=== PATIENT | female | born 1975 | race Two or more races ===

== ENCOUNTER 2016-10-06 18:50 | Emergency (ER) | payer OTHER ==
[2016-10-06 18:55] VITALS: BP 105/74; PULSE 87; TEMP 98.4; BMI 33.9
[2016-10-06] MEDS ORDERED: ONDANSETRON *ODT* 4 MG TABLET SL ONE (20:31)
--- NOTE | 2016-10-06 20:31 | PDOC ---
History of Present Illness <Dana Rodriguez - Last Filed: 10/07/16 00:24> - General History Source: Patient Exam Limitations: No Limitations - History of Present Illness Initial Comments: 10/06/16 21:15 The patient is a 41-year-old female, with a significant past medical history of ulcers and multiple C-sections, who presents to the ED with abdominal discomfort , cramping, and nausea. Patient is experiencing epigastric discomfort and suprapubic pain. The patient was fasting 3 days ago for Ramada and feels dehydrated. Patient sees track manager Dr. Hurley. She reports having a history of ulcers for which she been on medication for and has had endoscopies for. The patient denies any fever, chills, vomiting, or diarrhea. <Marylin Grace - Last Filed: 10/07/16 01:59> - General Chief Complaint: Pain Stated Complaint: ABD PAIN Time Seen by Provider: 10/06/16 18:53 Past History - Past Medical History Asthma: No Cancer: No Cardiac Disorders: No Diabetes: No GI Disorders: Yes (ULCERS) HTN: No Seizures: No Thyroid Disease: No - Psycho/Social/Smoking Cessation Hx Suicidal Ideation: No Smoking Status: No Smoking History: Never smoked Have you smoked in the past 12 months: No Number of Cigarettes Smoked Daily: 0 Information on smoking cessation initiated: No Hx Alcohol Use: No Drug/Substance Use Hx: No Hx Substance Use Treatment: No <Dana Rodriguez - Last Filed: 10/07/16 00:24> <Marylin Grace - Last Filed: 10/07/16 01:59> - Past Medical History Allergies/Adverse Reactions: Allergies Allergy/AdvReac Type Severity Reaction Status Date / Time No Known Drug Allergies Allergy Verified 10/06/16 18:55 Home Medications: Ambulatory Orders Iron 1 tab PO DAILY 02/22/13 Vitamins (Sjr) - 1 tab PO 02/22/13 Prevacid 30 mg PO DAILY 02/22/13 Tylenol .Extra-Strength - 1,000 mg PO Q8H 02/22/13 Acetaminophen [Tylenol .Regular Strength -] 650 mg PO Q4H PRN #0 tablet Ibuprofen [Motrin -] 600 mg PO Q4H PRN #0 tablet 03/09/13 Pantoprazole Sodium [Protonix -] 40 mg PO DAILY #14 tablet.ec 10/07/16 Review of Systems - Review of Systems Able to Perform ROS?: Yes Comments:: 10/06/16 21:15 CONSTITUTIONAL: Absent: fever, chills, diaphoresis, generalized weakness, malaise, loss of appetite HEENT: Absent: rhinorrhea, nasal congestion, throat pain, throat swelling, difficulty swallowing, mouth swelling, ear pain, eye pain, visual Changes CARDIOVASCULAR: Absent: chest pain, syncope, palpitations, irregular heart rate, lightheadedness , peripheral edema RESPIRATORY: Absent: cough, shortness of breath, dyspnea with exertion, orthopnea, wheezing, stridor, hemoptysis GASTROINTESTINAL: Present: abdominal pain/cramping, nausea Absent: abdominal distension, vomiting, diarrhea, constipation, melena, hematochezia GENITOURINARY: Absent: dysuria, frequency, urgency, hesitancy, hematuria, flank pain, genital pain MUSCULOSKELETAL: Absent: myalgia, arthralgia, joint swelling SKIN: Absent: rash, itching, pallor HEMATOLOGIC/IMMUNOLOGIC: Absent: easy bleeding, easy bruising, lymphadenopathy, frequent infections ENDOCRINE: Absent: unexplained weight gain, unexplained weight loss, heat intolerance, cold intolerance NEUROLOGIC: Absent: headache, focal weakness or paresthesias, dizziness, unsteady gait, seizure, mental status changes, bladder or bowel incontinence PSYCHIATRIC: Absent: anxiety, depression, suicidal or homicidal ideation, hallucinations. <Marylin Grace - Last Filed: 10/07/16 01:59> *Physical Exam - Vital Signs Last Vital Signs Temp Pulse Resp BP Pulse Ox 98.4 F 87 18 105/74 99 10/06/16 18:51 10/06/16 18:51 10/06/16 18:51 10/06/16 18:51 10/06/16 18:51 <Dana Rodriguez - Last Filed: 10/07/16 00:24> - Vital Signs Last Vital Signs Temp Pulse Resp BP Pulse Ox 98.4 F 87 18 105/74 99 10/06/16 18:51 10/06/16 18:51 10/06/16 18:51 10/06/16 18:51 10/06/16 18:51 - Physical Exam Comments: 10/07/16 01:58 Well developed, well nourished. Awake and alert. No acute distress. HEENT: Normocephalic, atraumatic. PERRLA, EOMI. No conjunctival pallor. Sclera are non- icteric. Moist mucous membranes. Oropharynx is clear. NECK: Supple. Full ROM. No JVD. Carotid pulses 2+ and symmetric, without bruits. No thyromegaly. No lymphadenopathy. CARDIOVASCULAR: Regular rate and rhythm. No murmurs, rubs, or gallops. Distal pulses are 2+ and symmetric. PULMONARY: No evidence of respiratory distress. Lungs clear to auscultation bilaterally. No wheezing, rales or rhonchi. ABDOMINAL: Soft. Non-tender. Non-distended. No rebound or guarding. No organomegaly. Normoactive bowel sounds. MUSCULOSKELETAL Normal range of motion at all joints. No bony deformities or tenderness. No CVA tenderness. EXTREMITIES: No cyanosis. No clubbing. No edema. No calf tenderness. SKIN: Warm and dry. Normal capillary refill. No rashes. No jaundice. NEUROLOGICAL: Alert, awake, appropriate. Cranial nerves 2-12 intact. PSYCHIATRIC: Cooperative. Good eye contact. Appropriate mood and affect. <Marylin Grace - Last Filed: 10/07/16 01:59> ED Treatment Course - LABORATORY CBC & Chemistry Diagram: 10/06/16 21:55 10/06/16 21:55 <Dana Rodriguez - Last Filed: 10/07/16 00:24> - LABORATORY CBC & Chemistry Diagram: 10/06/16 21:55 10/06/16 21:55 - ADDITIONAL ORDERS Additional order review: Laboratory Results 10/06/16 10/06/16 20:30 20:30 Urine Color Colorless Urine Appearance Clear Urine pH 5.0 Urine Protein Negative Urine Glucose (UA) Negative Urine Ketones Negative Urine Blood 1+ H Urine Nitrite Negative Urine Bilirubin Negative Urine Urobilinogen Negative Ur Leukocyte Esterase Negative Urine HCG, Qual Negative <Marylin Grace - Last Filed: 10/07/16 01:59> *DC/Admit/Observation/Transfer <Dana Rodriguez - Last Filed: 10/07/16 00:24> - Attestations Scribe Attestion: 10/07/16 01:59 Documentation prepared by Marylin Grace, acting as medical staff services coordinator for Dana Rodriguez MD. <Marylin Grace - Last Filed: 10/07/16 01:59> Diagnosis at time of Disposition: Epigastric abdominal pain - Discharge Dispostion Disposition: HOME Condition at time of disposition: Stable - Prescriptions Prescriptions: Pantoprazole Sodium [Protonix -] 40 mg PO DAILY #14 tablet.ec - Referrals Referrals: Fabiola Mcbride MD [Primary Care Provider] - - Patient Instructions Printed Discharge Instructions: DI for Epigastric Pain Additional Instructions: please followup with your physician centrifugal supervisor your prescription at [facility] pharmacy Recommend seeing a track manager if your symptoms persist
[2016-10-06 20:50] LABS: URINE APPEARANCE CLEAR; URINE BILIRUBIN NEGATIVE (NEGATIVE); URINE COLOR COLORLESS; URINE GLUCOSE (UA) NEGATIVE (NEGATIVE); URINE KETONE NEGATIVE (NEGATIVE); URINE LEUK ESTERASE NEGATIVE (NEGATIVE); URINE NITRITE NEGATIVE (NEGATIVE); URINE PROTEIN NEGATIVE (NEGATIVE); URINE UROBILINOGEN NEGATIVE E.U./dl (0.2-1.0)
[2016-10-06 21:00] LABS: URINE BLOOD 1+ (NEGATIVE)
[2016-10-06 21:09] LABS: URINE BACTERIA RARE /hpf (NONE SEEN); URINE RBC <1 /hpf (0-3); URINE WBC <1 /hpf (3-5)
[2016-10-06] MEDS ORDERED: ONDANSETRON 8 MG TABLET (FP) PO ONE (21:46)
[2016-10-06 22:15] LABS: BASOPHIL 0.8 % (0-2.0); EOSINOPHIL 1.2 % (0-4.5); MCH 29.8 pg (25.7-33.7); MCHC 33.2 g/dl (32.0-36.0); MEAN CELL VOLUME 89.6 fl (80-96); MEAN PLT VOLUME 7.8 fl (7.5-11.1); NEUTROPHILS 56.4 % (42.8-82.8); PLATELET COUNT 302 K/MM3 (134-434); RDW 14.7 % (11.6-15.6); WHITE BLOOD COUNT 6.2 K/mm3 (4.0-10.0)
[2016-10-06 22:40] LABS: ANION GAP 11 (8-16); CALCIUM 9.6 mg/dL (8.5-10.1); CO2 23 mmol/L (21-32); CREATININE 0.7 mg/dL (0.55-1.02); GLUCOSE,RANDOM 110 mg/dL (74-106); SGOT/AST 17 U/L (15-37); SGPT/ALT 32 U/L (12-78)
[2016-10-06 22:42] LABS: ALK PHOS 54 U/L (45-117); BILIRUBIN,TOTAL 0.3 mg/dL (0.2-1.0); TOT PROT 7.6 g/dl (6.4-8.2)
[2016-10-07] MEDS ORDERED: PANTOPRAZOLE 40 MG TABLET (FP) PO ONE (00:21)
== END 2016-10-07 00:56 | disposition home or self-care (01) ==
LOC: JER 18:50
DX: R10.13 Epigastric pain (principal); Z87.19 Personal history of other diseases of the digestive system
CPT/HCPCS: 36415; 76705-TC; 80053; 81003; 81015; 83690; 84703; 85025; 99282-25

== ENCOUNTER 2016-10-13 21:01 | Observation (INO) | payer OTHER ==
--- NOTE | 2016-10-13 22:59 | PDOC ---
History of Present Illness - General History Source: Patient Exam Limitations: No Limitations - History of Present Illness Initial Comments: 10/14/16 00:02 The patient is a 41 year old female with history of IBS, gastric ulcers, with IUD in place, who returns to the ED for 10 days of intermittent epigastric pain. She was seen in the ED and discharged home after an unremarkable workup. She states she has continued to experience intermittent epigastric pain with radiation to the right lower quadrant and superpubic area. Her pain is worse with movement and not improved after Nexium. She reports associated nausea. She also states her chronic midline backpain is worse than her usual state. No fever or chills. No vomiting, diarrhea, or constipation. No hematuria, dysuria, or frequency. No vaginal bleeding or discharge. No chest pain or shortness of breath. PCP: Dr. Leija <Dannielle Duckworth - Last Filed: 10/14/16 00:35> <Lauryn Low - Last Filed: 10/14/16 03:56> <Arik Tamayo - Last Filed: 10/16/16 07:38> - General Chief Complaint: Pain Stated Complaint: ABD PAIN Time Seen by Provider: 10/13/16 22:59 Past History <Dannielle Duckworth - Last Filed: 10/14/16 00:35> <Lauryn Low - Last Filed: 10/14/16 03:56> - Past Medical History Asthma: No Cancer: No Cardiac Disorders: No Diabetes: No GI Disorders: Yes (ULCERS) HTN: No Seizures: No Thyroid Disease: No - Psycho/Social/Smoking Cessation Hx Suicidal Ideation: No Smoking Status: No Smoking History: Never smoked Have you smoked in the past 12 months: No Number of Cigarettes Smoked Daily: 0 Hx Alcohol Use: No Drug/Substance Use Hx: No Hx Substance Use Treatment: No <Arik Tamayo - Last Filed: 10/16/16 07:38> - Past Medical History Allergies/Adverse Reactions: Allergies Allergy/AdvReac Type Severity Reaction Status Date / Time No Known Drug Allergies Allergy Verified 10/13/16 21:17 Home Medications: Ambulatory Orders Acetaminophen [Tylenol .Regular Strength -] 650 mg PO Q4H PRN #0 tablet Pantoprazole Sodium [Protonix -] 40 mg PO DAILY 10/14/16 Review of Systems - Review of Systems Able to Perform ROS?: Yes Comments:: 10/14/16 00:36 CONSTITUTIONAL: No reported: Fever, Chills, Diaphoresis, Generalized Weakness, Malaise, Loss of Appetite HEENT: No reported: Rhinorrhea, Nasal Congestion, Throat Pain, Throat Swelling, Difficulty Swallowing, Mouth Swelling, Ear Pain, Eye Pain, Visual Changes CARDIOVASCULAR: No reported: Chest Pain, Syncope, Palpitations, Irregular Heart Rate, Lightheadedness, Peripheral Edema RESPIRATORY: No reported: Cough, Shortness of Breath, SOB with Exertion, Orthopnea, Wheezing , Stridor, Hemoptysis GASTROINTESTINAL: No reported: Abdominal pain, Abdominal Distension, Nausea, Vomiting, Diarrhea, Constipation, Melena, Hematochezia GENITOURINARY: No reported: Dysuria, Frequency, Urgency, Hesitancy, Flank Pain, Genital Pain MUSCULOSKELETAL: No reported: Myalgia, Arthralgia, Joint Swelling, Back pain, Neck Pain SKIN: No reported: Rash, Itching, Pallor HEMEATOLOGIC/IMMUNOLOGIC: No reported: Easy Bleeding, Easy Bruising, Lymphadenopathy, Frequent infections ENDOCRINE: No reported: Unexplained Weight Gain, Unexplained Weight Loss, Heat Intolerance , Cold Intolerance NEUROLOGIC: No reported: Headache, Focal Weakness, Paresthesias, Vertigo, Lightheadedness, Unsteady Gait, Seizure, Mental Status Changes, Incontinence PSYCHIATRIC: No reported: Anxiety, Depression <Dannielle Duckworth - Last Filed: 10/14/16 00:35> *Physical Exam - Vital Signs Last Vital Signs Temp Pulse Resp BP Pulse Ox 99.1 F 93 H 18 128/86 99 10/13/16 21:14 10/13/16 21:14 10/13/16 21:14 10/13/16 21:14 10/13/16 21:14 - Physical Exam Comments: 10/14/16 00:36 GENERAL: The patient is awake, alert, and fully oriented, Nontoxic - in no acute distress. HEAD: Normocephalic, atraumatic. EYES: extraocular movements intact, sclera anicteric, conjunctiva clear. ENT: Normal voice, Moist mucous membranes. NECK: Normal range of motion, supple LUNGS: Breath sounds equal, clear to auscultation bilaterally. No wheezes, no rhonchi, no rales. HEART: Regular rate and rhythm, without murmur, rub or gallop. ABDOMEN: +Mild diffuse abdominal tenderness. Soft, normoactive bowel sounds. No guarding, no rebound.No CVA tenderness EXTREMITIES: Normal range of motion, no edema. No clubbing or cyanosis. No cords, erythema, or tenderness. NEUROLOGICAL: No facial assymetry, Normal speech, PSYCH: Normal mood, normal affect. SKIN: Warm, Dry, normal turgor, <Dannielle Duckworth - Last Filed: 10/14/16 00:35> - Vital Signs Last Vital Signs Temp Pulse Resp BP Pulse Ox 99.1 F 93 H 18 128/86 99 10/13/16 21:14 10/13/16 21:14 10/13/16 21:14 10/13/16 21:14 10/13/16 21:14 <Lauryn Low - Last Filed: 10/14/16 03:56> - Vital Signs Last Vital Signs Temp Pulse Resp BP Pulse Ox 99.1 F 93 H 18 128/86 99 10/13/16 21:14 10/13/16 21:14 10/13/16 21:14 10/13/16 21:14 10/13/16 21:14 <Arik Tamayo - Last Filed: 10/16/16 07:38> Heart Score/ECG Review - ECG Impressions Comment:: 10/14/16 03:16 Twelve-lead EKG was performed and reviewed by me. There is normal sinus rhythm with a normal rate. Rate of 76 The intervals are normal. No ST changes suggestive of acute ischemia <Arik Tamayo - Last Filed: 10/16/16 07:38> ED Treatment Course - LABORATORY CBC & Chemistry Diagram: 10/13/16 23:20 10/13/16 23:20 - ADDITIONAL ORDERS Additional order review: Laboratory Results 10/13/16 23:10 Urine Color Ltyellow Urine Appearance Clear Urine pH 5.0 Urine Protein Negative Urine Glucose (UA) Negative Urine Ketones Negative Urine Blood 1+ H Urine Nitrite Negative Urine Bilirubin Negative Urine Urobilinogen Negative Ur Leukocyte Esterase Trace H Urine RBC 1 Urine WBC 4 Ur Epithelial Cells Rare Urine Bacteria Rare 10/13/16 23:20 RBC 3.89 MCV 88.4 MCHC 33.6 RDW 14.3 MPV 7.4 L Neutrophils % 59.8 Lymphocytes % 32.0 Monocytes % 6.1 Eosinophils % 1.2 Basophils % 0.9 <GucciDannielle - Last Filed: 10/14/16 00:35> - LABORATORY CBC & Chemistry Diagram: 10/13/16 23:20 10/13/16 23:20 - ADDITIONAL ORDERS Additional order review: Laboratory Results 10/14/16 10/13/16 10/13/16 00:28 23:20 23:10 Sodium 142 Potassium 3.5 Chloride 107 Carbon Dioxide 26 Anion Gap 9 BUN 10 D Creatinine 0.6 Creat Clearance w eGFR > 60 Random Glucose 100 Calcium 9.0 Total Bilirubin 0.5 D AST 14 L ALT 27 Alkaline Phosphatase 60 Total Protein 7.3 Albumin 3.9 Serum , Qual Negative Urine Color Ltyellow Urine Appearance Clear Urine pH 5.0 Urine Protein Negative Urine Glucose (UA) Negative Urine Ketones Negative Urine Blood 1+ H Urine Nitrite Negative Urine Bilirubin Negative Urine Urobilinogen Negative Ur Leukocyte Esterase Trace H Urine RBC 1 Urine WBC 4 Ur Epithelial Cells Rare Urine Bacteria Rare 10/13/16 23:20 RBC 3.89 MCV 88.4 MCHC 33.6 RDW 14.3 MPV 7.4 L Neutrophils % 59.8 Lymphocytes % 32.0 Monocytes % 6.1 Eosinophils % 1.2 Basophils % 0.9 - RADIOLOGY Radiograph Interpretation: 10/14/16 02:05 EXAM: CT abdomen and pelvis without contrast Reviewed by Imaging emissions inspector: FINDINGS: Lung bases are clear. The visualized cardiac chambers are normal size and configuration. Normal unenhanced liver, gallbladder, pancreas, spleen, adrenal glands and kidneys. 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 There is no aortic aneurysm. There is no significant retroperitoneal lymphadenopathy. The uterus and adnexal structures are notable for an IUD. Urinary bladder is unremarkable. There is no pelvic free fluid. No discrete pelvic lymphadenopathy is identified. 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 No definite acute pathology. - Medications Given in the ED: ED Medications Discontinued Medications Generic Name Dose Route Start Last Admin Trade Name Freq PRN Reason Stop Dose Admin Morphine Sulfate 2 mg 10/14/16 00:17 10/14/16 00:28 Morphine Injection - IVPUSH 10/14/16 00:18 2 mg ONCE ONE Administration <Bharrat,Lauryn - Last Filed: 10/14/16 03:56> - LABORATORY CBC & Chemistry Diagram: 10/14/16 10:55 10/14/16 10:55 <Arik Tamayo - Last Filed: 10/16/16 07:38> Medical Decision Making - Medical Decision Making 10/14/16 03:[address] Liban Morataya (via answering service) Awaiting call back 10/14/16 03:31 Patient's case discussed with Dr. Morataya 10/14/16 03:[address] Lucia Leija (via answering service) and patient's case was discussed. <Lauryn Low - Last Filed: 10/14/16 03:56> - Medical Decision Making 10/14/16 00:19 41y F with intermittent RLQ pain for 2 weeks, w/o feverchills, diarrhea, +nausea on exam pt had mild diffuse tenderness differential includes kidney stones, appendicitis, uti will ck labs screenig ekg for acs ct, ua A portion of this note was documented by scribe services under my direction. I have reviewed the details of the note, within reason, and agree with the documentation with the following case summary and management plan written by me 10/14/16 03:[address] notable for midgut malrotation w/o obstruction or inflammation no definite acute pathology otherwise noted however pt still complaining of pain will consider observing the pt for further mangaement and surgical consultation. will notify surgery and MPD (Dr. Leija) 10/14/16 03:[address] Morataya - would recommend obtaining CT w IV and PO contrast 10/14/16 07:[address] results will sing pt out to dr. westfall to fu with results of CT if persistnt pain will obs w/ surgical consult <Arik Tamayo - Last Filed: 10/16/16 07:38> *DC/Admit/Observation/Transfer - Attestations Scribe Attestion: 10/14/16 00:36 Documentation prepared by Dannielle Duckworth, acting as biomedical engineer for Arik Tamayo MD. <Dannielle Duckworth - Last Filed: 10/14/16 00:35> <Lauryn Low - Last Filed: 10/14/16 03:56> <Arik Tamayo - Last Filed: 10/16/16 07:38> Diagnosis at time of Disposition: Abdominal pain Qualifiers: Abdominal location: epigastric Qualified Code(s): R10.13 - Epigastric pain - Discharge Dispostion Disposition: HOME - Referrals
[2016-10-13 23:20] LABS: URINE APPEARANCE CLEAR; URINE BILIRUBIN NEGATIVE (NEGATIVE); URINE COLOR LTYELLOW; URINE GLUCOSE (UA) NEGATIVE (NEGATIVE); URINE KETONE NEGATIVE (NEGATIVE); URINE NITRITE NEGATIVE (NEGATIVE); URINE PROTEIN NEGATIVE (NEGATIVE); URINE UROBILINOGEN NEGATIVE E.U./dl (0.2-1.0)
[2016-10-13 23:21] LABS: URINE BLOOD 1+ (NEGATIVE); URINE LEUK ESTERASE TRACE (NEGATIVE)
[2016-10-13 23:27] LABS: URINE BACTERIA RARE /hpf (NONE SEEN); URINE RBC 1 /hpf (0-3); URINE WBC 4 /hpf (3-5)
[2016-10-13 23:30] LABS: BASOPHIL 0.9 % (0-2.0); EOSINOPHIL 1.2 % (0-4.5); MCH 29.7 pg (25.7-33.7); MCHC 33.6 g/dl (32.0-36.0); MEAN CELL VOLUME 88.4 fl (80-96); MEAN PLT VOLUME 7.4 fl (7.5-11.1); NEUTROPHILS 59.8 % (42.8-82.8); PLATELET COUNT 280 K/MM3 (134-434); RDW 14.3 % (11.6-15.6); WHITE BLOOD COUNT 6.4 K/mm3 (4.0-10.0)
[2016-10-14 00:07] LABS: ALBUMIN 3.9 g/dl (3.4-5.0); ANION GAP 9 (8-16); CO2 26 mmol/L (21-32); CREATININE 0.6 mg/dL (0.55-1.02); GLUCOSE,RANDOM 100 mg/dL (74-106); SGOT/AST 14 U/L (15-37); SGPT/ALT 27 U/L (12-78)
[2016-10-14 00:09] LABS: ALK PHOS 60 U/L (45-117); BILIRUBIN,TOTAL 0.5 mg/dL (0.2-1.0); TOT PROT 7.3 g/dl (6.4-8.2)
[2016-10-14] MEDS ORDERED: morphine CARPU-JECT 2 MG/1 ML DISP.SYRIN IVPUSH ONE (00:17)
[2016-10-14] MEDS ORDERED: morphine CARPU-JECT 2 MG/1 ML DISP.SYRIN ONE (00:20)
[2016-10-14] MEDS ORDERED: KETOROLAC TROMETHAMINE 30 MG/1 ML VIAL IVPUSH ONE (03:36)
[2016-10-14] MEDS ORDERED: KETOROLAC TROMETHAMINE 30 MG/1 ML VIAL ONE (04:04)
[2016-10-14] MEDS ORDERED: ONDANSETRON 4 MG/2 ML VIAL ONE (05:25)
[2016-10-14] MEDS ORDERED: ONDANSETRON 4 MG/2 ML VIAL IVPB ONE (05:25)
--- NOTE | 2016-10-14 07:11 | PDOC ---
*Physical Exam - Vital Signs Last Vital Signs Temp Pulse Resp BP Pulse Ox 98.4 F 68 18 106/64 99 10/14/16 05:24 10/14/16 05:24 10/14/16 05:24 10/14/16 05:24 10/14/16 05:24 <Mich King - Last Filed: 10/14/16 09:45> - Vital Signs Last Vital Signs Temp Pulse Resp BP Pulse Ox 98.4 F 68 18 106/64 99 10/14/16 05:24 10/14/16 05:24 10/14/16 05:24 10/14/16 05:24 10/14/16 05:24 - Physical Exam Comments: 10/14/16 07:11 Sign-out received from outgoing Emergency Physician Pt interviewed and examined Ancillary studies reviewed Repeat CT done and pending Outgoing EP related to me that he notified Dr. Leija of his intent to place the patient on observation 10/14/16 07:43 CT noted, confirming midgut malrotation, without evidence of acute process The patient continues to be in pain I had an extensive discussion with the patient and her brother, who is a radiologist I expressed my strong opinion that she should be placed on observation for continued evaluation including repeat labs, lactic acid, as well as seen by general surgery, gastroenterology and her primary care physician The patient reluctantly agreed Clinical impression: Abdominal pain 10/14/16 10:03 <Khalif Rahman - Last Filed: 10/14/16 10:04> ED Treatment Course - LABORATORY CBC & Chemistry Diagram: 10/13/16 23:20 10/13/16 23:20 - ADDITIONAL ORDERS Additional order review: Laboratory Results 10/14/16 10/13/16 10/13/16 00:28 23:20 23:10 Sodium 142 Potassium 3.5 Chloride 107 Carbon Dioxide 26 Anion Gap 9 BUN 10 D Creatinine 0.6 Creat Clearance w eGFR > 60 Random Glucose 100 Calcium 9.0 Total Bilirubin 0.5 D AST 14 L ALT 27 Alkaline Phosphatase 60 Total Protein 7.3 Albumin 3.9 Serum , Qual Negative Urine Color Ltyellow Urine Appearance Clear Urine pH 5.0 Urine Protein Negative Urine Glucose (UA) Negative Urine Ketones Negative Urine Blood 1+ H Urine Nitrite Negative Urine Bilirubin Negative Urine Urobilinogen Negative Ur Leukocyte Esterase Trace H Urine RBC 1 Urine WBC 4 Ur Epithelial Cells Rare Urine Bacteria Rare 10/13/16 23:20 RBC 3.89 MCV 88.4 MCHC 33.6 RDW 14.3 MPV 7.4 L Neutrophils % 59.8 Lymphocytes % 32.0 Monocytes % 6.1 Eosinophils % 1.2 Basophils % 0.9 - Medications Given in the ED: ED Medications Discontinued Medications Generic Name Dose Route Start Last Admin Trade Name Freq PRN Reason Stop Dose Admin Ketorolac Tromethamine 30 mg 10/14/16 03:36 10/14/16 04:03 Toradol Injection - IVPUSH 10/14/16 03:37 30 mg ONCE ONE Administration Morphine Sulfate 2 mg 10/14/16 00:17 10/14/16 00:28 Morphine Injection - IVPUSH 10/14/16 00:18 2 mg ONCE ONE Administration Ondansetron HCl 4 mg 10/14/16 05:25 10/14/16 05:31 Zofran Injection IVPB 10/14/16 05:26 4 mg ONCE ONE Administration <Mich King - Last Filed: 10/14/16 09:45> - LABORATORY CBC & Chemistry Diagram: 10/13/16 23:20 10/13/16 23:20 - ADDITIONAL ORDERS Additional order review: Laboratory Results 10/14/16 10/13/16 10/13/16 00:28 23:20 23:10 Sodium 142 Potassium 3.5 Chloride 107 Carbon Dioxide 26 Anion Gap 9 BUN 10 D Creatinine 0.6 Creat Clearance w eGFR > 60 Random Glucose 100 Calcium 9.0 Total Bilirubin 0.5 D AST 14 L ALT 27 Alkaline Phosphatase 60 Total Protein 7.3 Albumin 3.9 Serum , Qual Negative Urine Color Ltyellow Urine Appearance Clear Urine pH 5.0 Urine Protein Negative Urine Glucose (UA) Negative Urine Ketones Negative Urine Blood 1+ H Urine Nitrite Negative Urine Bilirubin Negative Urine Urobilinogen Negative Ur Leukocyte Esterase Trace H Urine RBC 1 Urine WBC 4 Ur Epithelial Cells Rare Urine Bacteria Rare 10/13/16 23:20 RBC 3.89 MCV 88.4 MCHC 33.6 RDW 14.3 MPV 7.4 L Neutrophils % 59.8 Lymphocytes % 32.0 Monocytes % 6.1 Eosinophils % 1.2 Basophils % 0.9 - Medications Given in the ED: ED Medications Discontinued Medications Generic Name Dose Route Start Last Admin Trade Name Freq PRN Reason Stop Dose Admin Ketorolac Tromethamine 30 mg 10/14/16 03:36 10/14/16 04:03 Toradol Injection - IVPUSH 10/14/16 03:37 30 mg ONCE ONE Administration Morphine Sulfate 2 mg 10/14/16 00:17 10/14/16 00:28 Morphine Injection - IVPUSH 10/14/16 00:18 2 mg ONCE ONE Administration Ondansetron HCl 4 mg 10/14/16 05:25 10/14/16 05:31 Zofran Injection IVPB 10/14/16 05:26 4 mg ONCE ONE Administration <Khalif Rahman - Last Filed: 10/14/16 10:04> Medical Decision Making - Medical Decision Making 10/14/16 07:27 Dr. Lucia Leija was called regarding the patient at 7:30am and 9:45am [phone] Dr. Lucia Leija was called regarding the patient at 7:58am and 8:37am [phone] <Mich King - Last Filed: 10/14/16 09:45> *DC/Admit/Observation/Transfer <Mich King - Last Filed: 10/14/16 09:45> - Discharge Dispostion Admit: Yes <Khalif Rahman - Last Filed: 10/14/16 10:04> Diagnosis at time of Disposition: Abdominal pain - Referrals - Patient Instructions - Post Discharge Activity
[2016-10-14] MEDS ORDERED: DEXTROSE 5%-NORMAL SALINE 1,000 ML IV SCH (08:00)
[2016-10-14 09:47] VITALS: BMI 33.0
--- NOTE | 2016-10-14 10:18 | CON.GI ---
Consult Consult Specialty:: GI for Marisa Referred by:: Dr. Leija Reason for Consultation:: Abdominoipelvic pain - History of Present Illness Chief Complaint: I had pain (points to upper abdomen and pelvis) History of Present Illness: 41F admitted through [facility] ER for evaluation of abdominopelvic pain. She describes the pain as sharp, occurring over the last 2-3 weeks, worse over the last couple of days prompting her ER evaluation, radiating from the epigastrium to the pelvis and "her vagina". She takes ibuprofen 600mg daily along with nexium and the ibuprofen seems to help with the pelvic pain. She also describes associated nausea and urinary frequency. In the ER her triage vitals were unremarkable and she underwent both non contrast and contrast CT scans that were unremarkable except for demonstrating intestinal malrotation. UA was positive for blood, RBC's and WBC's. She was given morphine in the ER last night that seems to have helped alleviate her pain as well. She has had GI work-up in the past. She had EGD/Colonoscopy in [address] Sunshine Hurley. EGD revealed mild gastritis, small sliding hiatal hernia and biopsies were unrevealing for celiac and h. pylori. Colonoscopy revealed a 1cm tubular adenoma of the sigmoid colon and a hyperplastic ascending colon polyp. She follows now with a city planning teacher at [facility] and had repeat procedures in 2011 that were "clear". She says that she recently received a letter regarding follow-up for repeat colonoscopy and intends on following up. She currently denies change in bowel habits, rectal bleeding, melena, fevers , chills but says that she has a diminished appetite. She says it hurt in the upper abdomen when she drank the oral contrast last night. 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 (year[place] 2005 History of Recent Travel: No Home Medications - Allergies Allergies/Adverse Reactions: Allergies Allergy/AdvReac Type Severity Reaction Status Date / Time No Known Drug Allergies Allergy Verified 10/13/16 21:17 - Home Medications Home Medications: Ambulatory Orders Ibuprofen [Motrin -] 600 mg PO Q6H PRN 10/14/16 Pantoprazole Sodium [Protonix -] 40 mg PO DAILY 10/14/16 Family Disease History - Family Disease History Family Disease History: Other: Father (Alive: CAD), Mother (Alive: healthy), Brother (1: healthy), Sister (4: healthy) Other Family History: 3 children: healthy. Maternal Uncle with ? liver tumor. Paternal Uncle with Cirrhosis. No family history of colorectal cancer Review of Systems - Review of Systems Constitutional: reports: Loss of Appetite. denies: Fever, Unintentional Wgt. Loss Cardiovascular: denies: Chest Pain Respiratory: denies: Cough, SOB Gastrointestinal: reports: Abdominal Pain, Nausea. denies: Constipation, Diarrhea, Dysphagia, Melena, Rectal Bleeding, Vomiting, Vomiting Blood Physical Exam-GI Vital Signs: Vital Signs Temperature 99.1 F 10/14/16 09:37 Pulse Rate 60 10/14/16 09:37 Respiratory Rate 18 10/14/16 09:37 Blood Pressure 118/68 10/14/16 09:37 O2 Sat by Pulse Oximetry (%) 99 10/14/16 09:37 Constitutional: Yes: No Distress Eyes: No: Sclera Icterus Cardiovascular: Yes: Regular Rate and Rhythm. No: Murmur Respiratory: Yes: CTA Bilaterally Gastrointestinal Inspection: Yes: Scars (Pelvic surgical scar). No: Distention ...Auscultate: Yes: Normoactive Bowel Sounds ...Palpate: Yes: Tenderness (TTP epigastrium with marked tenderness to palpation in Pelvis). No: Guarding, Tenderness, Rebound ...Rectal Exam: Yes: Guaiac Negative. No: Mass Edema: No Neurological: Yes: Alert, Oriented Imaging - Results Cat Scan: Report Reviewed, Image Reviewed Problem List - Problems (1) Abdominal pain Assessment/Plan: Pain seems to be focused in pelvis on my current exam although has mild epigastric pain. Given chronic NSAID use, epigastric pain on palpation we did discuss upper endoscopy to exclude intraluminal pathology. We discussed potential risks of the procedure like but not limited to bleeding, perforation requiring surgery to repair, infection, sedation medication effects all of which could be potentially life threatening. She has agreed to the procedure. I also advised that she follow-up with her city planning teacher at [facility] when her acute issues are resolved Also: Consider county demonstrator evaluation given her pelvic pain complaints: she does have an IUD in place Consider further evaluation of blood and WBC's in the urine, urinary frequency: ? genitourinary pathology Surgical evaluation Clear liquids if she can tolerate Code(s): R10.9 - UNSPECIFIED ABDOMINAL PAIN
[2016-10-14 11:01] LABS: BASOPHIL 0.7 % (0-2.0); EOSINOPHIL 1.2 % (0-4.5); MCH 29.9 pg (25.7-33.7); MCHC 33.5 g/dl (32.0-36.0); MEAN CELL VOLUME 89.4 fl (80-96); MEAN PLT VOLUME 6.9 fl (7.5-11.1); NEUTROPHILS 63.1 % (42.8-82.8); PLATELET COUNT 242 K/MM3 (134-434); RDW 14.4 % (11.6-15.6); WHITE BLOOD COUNT 5.1 K/mm3 (4.0-10.0)
[2016-10-14 11:36] LABS: ANION GAP 5 (8-16); CALCIUM 8.9 mg/dL (8.5-10.1); CO2 29 mmol/L (21-32); CREATININE 0.6 mg/dL (0.55-1.02); GLUCOSE,RANDOM 108 mg/dL (74-106)
--- NOTE | 2016-10-14 13:14 | EKG ---
Test Reason : Blood Pressure : / mmHG Vent. Rate : 076 BPM Atrial Rate : 076 BPM P-R Int : 166 ms QRS Dur : 096 ms QT Int : 398 ms P-R-T Axes : 036 -16 022 degrees QTc Int : 447 ms POOR DATA QUALITY, INTERPRETATION MAY BE ADVERSELY AFFECTED SINUS RHYTHM WITH INTRA ATRIAL CONDUCTION ABNORMALITY MINIMAL VOLTAGE CRITERIA FOR LVH, MAY BE NORMAL VARIANT BORDERLINE ECG WHEN COMPARED WITH ECG OF 19-AUG-2010 12:48, INCREASE QRS VOLTAGE IN aVL. ABSENCE OF RSR' IN LEAD V1 AND V2 T WAVES ARE INVERTED IN LEAD V2 CLINICAL CORRELATION IS RECOMMENDED Confirmed by PATT SHANE MD ([id number]) on 10/14/2016 1:14:22 PM Referred By: Confirmed By:PATT SHANE MD
--- NOTE | 2016-10-14 13:15 | CONSULT ---
Consult Consult Specialty:: General Surgery Referred by:: ER Dr. Tamayo/Josiah and Dr. Leija Reason for Consultation:: intestinal malrotation - History of Present Illness Chief Complaint: epigastric pain radiating to RLQ/R groin/pelvic area History of Present Illness: 41yo F with h/o gastritis, IBS since of second child (~9yrs ago), chronic low back pain, IUD, s/p x2, admitted from ER overnight after presenting with epigastric pain radiating to RLQ/R pelvic area, at first on/off over last 2 weeks, then constant and increasing over last few days. The pain is worse with getting up and walking around or with movement, better laying down. It is not clearly related to food or drink, but at times is worse with po intake. It feels "heavy." It is associated with nausea, and she has felt like vomiting, but has not actually done so. Appetite is decreased in the last few days, as the pain worsened, but prior to that has been normal. Bowel function is normal, daily and easy, last BM was yesterday. She passes flatus regularly. No fever or chills. No diarrhea. She had some brief constipation with diet changes around a change in eating schedule for latter-day reasons last month, but it resolved. She was seen in the ER 10/06 for similar pain, but not as bad, and was sent home to f/u with PMD after they did some tests and found nothing acute. Her last colonoscopy was in 2011, and she had endoscopy before as well that found gastritis. She takes Nexium daily but occasionally forgets. She also uses ibuprofen 600mg prn (~daily) for chronic low back pain. She describes her abdominal pain symptoms as having begun initially about 9 years ago after the of her second child by c/s. Around that time, she also had an IUD placed shortly after, which was removed after 1 month secondary to migration and possibly an infection. She did not have another until a year and a half ago, which is currently in place. Over the last number of years, the abdominal pain comes and goes at times, and she had a lot of tests, including cystoscopy and GI evaluations including scopes. She was diagnosed with possible IBS when nothing else was found. She came back to the ER last night because the pain got to be the worst it has been. It was partly relieved by morphine and something else in the ER. In the ER , labs were normal, she was afebrile, and noncontrast CT showed malrotation with no evidence of obstruction. CT was repeated with po and IV contrast, confirming the same and showing no bowel wall thickening. She was admitted for observation and for GI and surgery to see. She still has pain now, but it is less than when she got here. It is worse as she sits up and better lying down in bed. It is still epigastric with radiation to the RLQ/R pelvis/R groin area. - History Source History Provided By: Patient Limitations to Obtaining History: No Limitations - Past Medical History Gastrointestinal: Yes: Gastritis, Irritable Bowel Disease (? - since 2nd child ~ 9 yrs ago) ...LMP: 09/25/16 ...LMP Comment: 1-2 days ...: No ...: 3 ...Para: 3 (c/s x 2, age 11, 10, 3.5) Musculoskeletal: Yes: Chronic low back pain, Other (Chronic Lower Back Pain) - Past Surgical History Past Surgical History: Yes: Colonoscopy (last 2011), (x2), Upper Endoscopy Additional Surgical History: IUD placed 9 yrs ago - removed after 1 month for migration; IUD placed 1.5 yrs ago (in place now) - Alcohol/Substance Use Hx Alcohol Use: No History of Substance Use: reports: None - Smoking History Smoking history: Never smoked Have you smoked in the past 12 months: No Aproximately how many cigarettes per day: 0 - Social History Usual Living Arrangement: With Spouse ADL: Independent 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 History of Recent Travel: No Home Medications - Allergies Allergies/Adverse Reactions: Allergies Allergy/AdvReac Type Severity Reaction Status Date / Time No Known Drug Allergies Allergy Verified 10/13/16 21:17 - Home Medications Home Medications: Ambulatory Orders Ibuprofen [Motrin -] 600 mg PO Q6H PRN 10/14/16 Pantoprazole Sodium [Protonix -] 40 mg PO DAILY 10/14/16 Home Medications (free text): vitamin D and fish oil sometimes Family Disease History - Family Disease History Family Disease History: Diabetes: Father (Alive: CAD s/p stent, HTN, DM), Heart Disease: Father, Other: Father, Mother (Alive: healthy), Brother (1: healthy), Sister (4: healthy) Other Family History: 3 children: healthy. Maternal Uncle with ? liver tumor. Paternal Uncle with Cirrhosis. No family history of colorectal cancer Review of Systems - Review of Systems Constitutional: reports: Loss of Appetite (last few days with increasing pain), Weakness (recently). denies: Chills, Fever, Unintentional Wgt. Loss Eyes: denies: Blurred Vision, Double Vision HENT: denies: Difficult Swallowing, Hearing Loss, Nasal Congestion, Throat Pain Neck: denies: Stiffness, Swollen Glands Cardiovascular: denies: Chest Pain, Palpitations Respiratory: denies: Cough, SOB Gastrointestinal: reports: Abdominal Pain (see hpi), Constipation (had briefly with diet change last month, but resolved - goes daily and easily), Nausea. denies: Diarrhea, Melena, Rectal Bleeding, Vomiting Genitourinary: denies: Burning, Dysuria Musculoskeletal: reports: Back Pain (lower - since a fall many years ago). denies: Joint Swelling Integumentary: denies: Bruising, Change in Color, Rash Neurological: reports: Headache, Weakness. denies: Dizziness Endocrine: denies: Unexplained Weight Gain, Unexplained Weight Loss Psychiatric: reports: Altered Sleep Pattern (some recently) Physical Exam Vital Signs: Vital Signs Temperature 99.1 F 10/14/16 09:37 Pulse Rate 60 10/14/16 09:37 Respiratory Rate 18 10/14/16 09:37 Blood Pressure 118/68 10/14/16 09:37 O2 Sat by Pulse Oximetry (%) 99 10/14/16 09:37 Constitutional: Yes: No Distress, Calm, Obese Eyes: Yes: Conjunctiva Clear, EOM Intact HENT: Yes: Atraumatic, Normocephalic Cardiovascular: Yes: Regular Rate and Rhythm. No: Murmur Respiratory: Yes: Regular, CTA Bilaterally Gastrointestinal: Yes: Normal Bowel Sounds, Soft, Abdomen, Obese, Tenderness ( diffuse, mild to moderate, no guarding, no clinical rebound). No: Distention ...Rectal Exam: Yes: Deferred Renal/: No: CVA Tenderness - Left, CVA Tenderness - Right Musculoskeletal: Yes: Back Pain (mildly tender over lumbosacral area). No: Joint Swelling Extremities: No: Cool, Cyanosis Neurological: Yes: Alert, Oriented Psychiatric: Yes: Alert, Oriented Labs: CBC, BMP 10/14/16 10:55 Imaging - Results Cat Scan: Report Reviewed, Image Reviewed (x2 (without and with contrast) - intestinal malrotation with no obstruction or inflammation/bowel wall thickening , cecum in RLQ but SB all on right, duodenum not crossing midline, descending colon displaced toward midline, normal appendix; no acute findings) Problem List - Problems (1) Abdominal pain Assessment/Plan: May be secondary to intestinal malrotation and chronic intermittent obstructive symptoms or [place]'s bands, but may also be multifactorial - given previous pelvic surgery (c/s x2), h/o gastritis, IUD with h/o complication, chronic lower back pain, possible IBS - could be related to any of these as well. Agree with evaluation by GI, [employer], other specialists as indicated to rule in or out other possible contributing factors. See plan for malrotation. Code(s): R10.9 - UNSPECIFIED ABDOMINAL PAIN Qualifiers: Abdominal location: epigastric Qualified Code(s): R10.13 - Epigastric pain (2) Congenital malrotation of intestine Assessment/Plan: No evidence of acute obstruction or volvulus. Surgical treatment would involve division of [place]'s bands, repositioning of intestines and appendectomy. This may be accomplished via laparoscopy or open operation, but is not urgent or emergent in the absence of acute findings. Discussed with patient the abnormal anatomy, its possible relation to her chronic pain and GI symptoms, its potential for acute volvulus/twisting or obstruction, and the details of surgical treatment. I could offer only an open procedure, and can make no guarantee that it would relieve some or all of her pain and symptoms. She is interested in pursuing consultation with GI, [employer], and her primary physician before deciding about having the Edi's procedure. She understands that acute obstruction or volvulus could necessitate emergent surgery, but risk is likely low, and I agree with her plan to approach this electively. I discussed this with Dr. Leija, and she will help coordinate further workup and referrals for the patient. She has started back on clears, and should be able to advance as tolerated after endoscopies, depending on when that is scheduled. Thank you for the opportunity to participate in the care of this patient. Code(s): Q43.3 - CONGENITAL MALFORMATIONS OF INTESTINAL FIXATION (3) Obesity (BMI 30.0-34.9) Assessment/Plan: Defer to primary Code(s): E66.9 - OBESITY, UNSPECIFIED (4) H/O gastritis Assessment/Plan: GI has offered upper and lower endoscopy for tomorrow. Agree with this or short f/u for same. Code(s): Z87.19 - PERSONAL HISTORY OF OTHER DISEASES OF THE DIGESTIVE SYSTEM
--- NOTE | 2016-10-14 14:01 | HP ---
Admitting History and Physical - Past Medical History Gastrointestinal: Yes: Gastritis, Irritable Bowel Disease (? 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 History of Recent Travel: No Home Medications - Allergies Allergies/Adverse Reactions: Allergies Allergy/AdvReac Type Severity Reaction Status Date / Time No Known Drug Allergies Allergy Verified 10/13/16 21:17 - Home Medications Home Medications: Ambulatory Orders Ibuprofen [Motrin -] 600 mg PO Q6H PRN 10/14/16 Pantoprazole Sodium [Protonix -] 40 mg PO DAILY 10/14/16 Family Disease History - Family Disease History Family Disease History: Diabetes: Father (Alive: CAD s/p stent, HTN, DM), Heart Disease: Father, Other: Father, Mother (Alive: healthy), Brother (1: healthy), Sister (4: healthy) Other Family History: 3 children: healthy. Maternal Uncle with ? liver tumor. Paternal Uncle with Cirrhosis. No family history of colorectal cancer Physical Examination Vital Signs: Vital Signs Temperature 99.1 F 10/14/16 09:37 Pulse Rate 60 10/14/16 09:37 Respiratory Rate 18 10/14/16 09:37 Blood Pressure 118/68 10/14/16 09:37 O2 Sat by Pulse Oximetry (%) 99 10/14/16 09:37 Labs: CBC, BMP 10/14/16 10:55 10/14/16 10:55
[2016-10-14] MEDS ORDERED: PANTOPRAZOLE 40 MG TABLET (FP) PO SCH (14:30)
[2016-10-14] MEDS ORDERED: ACETAMINOPHEN 325 MG TABLET (FP) PO PRN (14:56)
[2016-10-14] MEDS ORDERED: PT OWN MED DRAWER 7, Y5N ONE (18:31)
[2016-10-14 18:44] VITALS: BP 117/71; PULSE 69; TEMP 97.8
== END 2016-10-14 19:32 | disposition home or self-care (01) ==
LOC: JER 21:01 → JERBED 10-14 07:45 → J5S 10-14 08:50
PROVIDERS: ADMIT Internal Medicine; ATTEND Internal Medicine
PROC: 3E033NZ Introduction of Analgesics, Hypnotics, Sedatives into Peripheral Vein, Percutaneous Approach (ICD-10-PCS; principal; 2016-10-14)
PROC: 3E033GC Introduction of Other Therapeutic Substance into Peripheral Vein, Percutaneous Approach (ICD-10-PCS; 2016-10-14)
PROC: 3E0337Z Introduction of Electrolytic and Water Balance Substance into Peripheral Vein, Percutaneous Approach (ICD-10-PCS; 2016-10-14)
DX: R10.9 Unspecified abdominal pain (principal); R10.13 Epigastric pain; Q43.3 Congenital malformations of intestinal fixation; E66.9 Obesity, unspecified; Z68.33 Body mass index [BMI] 33.0-33.9, adult; K58.9 Irritable bowel syndrome, unspecified; Z97.5 Presence of (intrauterine) contraceptive device; M54.5 Low back pain; G89.29 Other chronic pain; Z87.11 Personal history of peptic ulcer disease; Z87.19 Personal history of other diseases of the digestive system
CPT/HCPCS: 36415; 74176-TC; 74177-TC; 76856-TC; 80048; 80053; 81003; 81015; 83605; 84703; 85025; 93005; 93010; 99285-25; G0378; Q9967